=== PATIENT | female | born 1975 | race Caucasian/White ===

== ENCOUNTER 2021-01-11 10:15 | Inpatient (IN) | payer OTHER, BC ==
[~2021-01-11] VITALS: Ht 162.6 cm; Wt 173.7 kg
--- NOTE | ~2021-01-11 | O ---
[facility] [place] [address] OPERATIVE REPORT Name: ABRAN ESPINOZA Room #: 456-P ADM IN M.R.#: [id number] Admission: 01/11/21 Attend Phys: Roberto Lackey MD Discharge: Date of : 75 Report #: [id number] THIS REPORT FOR: cc: Sandee Mukherjee MD, Emily G. MD Joseph, Sigi P. MD ~ DOC #: [id number] cc: Sandee Lackey MD DATE OF SERVICE: 01/11/2021 PREOPERATIVE DIAGNOSES: Morbid obesity, arthritis and history of a lap band placement and removal. POSTOPERATIVE DIAGNOSES: Morbid obesity, arthritis and history of a lap band placement and removal. OPERATIVE PROCEDURES DONE: 1. Laparoscopic lysis of adhesions. 2. Laparoscopic Reynaldo-en-Y gastric bypass. 3. Upper GI endoscopy. OPERATING SURGEON: Roberto Lackey MD INDICATIONS FOR PROCEDURE: The patient is a 45-year-old female who presented with features of morbid obesity. She was noted to have a weight of 176 kilograms with a BMI of 67 with the above listed comorbidities. The patient has a history of lap band placement and subsequent removal. The patient was advised laparoscopic Reynaldo-en-Y gastric bypass. The patient stated understanding and agreed to proceed. PROCEDURE IN DETAIL: After explaining to the patient in detail and informed consent was obtained, the patient was identified in the preoperative holding area. The patient was transferred to the operating room and was placed in supine position. Sequential compression devices were placed for DVT prophylaxis. Preoperative antibiotics were given. After induction of anesthesia, the abdomen was prepped and draped in a sterile fashion. Through a left upper quadrant 1 cm incision and using Optiview technique, peritoneal cavity was entered and pneumoperitoneum was created. Thereafter, under direct vision, another 5 mm trocar was placed in the left mid abdomen and a 12 mm trocar was placed in the right mid abdomen and another 5 mm trocar was placed in the right and through a 1 cm incision in the epigastrium, a Samaria retractor was introduced and the left lobe of the liver was retracted. On initial inspection, the patient was noted to have some adhesions in the upper part of the stomach. These adhesions were taken down using EnSeal, the gastrogastric [address] [address] OPERATIVE REPORT Name: ABRAN ESPINOZA Larisa Room #: 456-P [facility] IN M.R.#: [id number] Admission: 01/11/21 Attend Phys: Roberto Lackey MD Discharge: Date of : 75 Report #: [id number] plication, which was previously placed for the lap band was also removed. Some of the sutures were also removed. I then mobilized the angle of His by dividing all the adhesions in this area. The gastrohepatic omentum was divided. The small blood vessels along the lesser curve and the fatty tissue was divided using Endo-YOLANDA white load stapler with Padma-Strips at the junction of the proximal and middle third of the stomach. I then fired a single 60 mm green load with Padma-Strip in a transverse fashion, I then continued to create the pouch by dividing the stomach in a vertical fashion up to the angle of His. Once this was completed, I then divided the greater omentum in the middle. I then retracted the transverse mesocolon. The small bowel was then identified at the ligament of Treitz and then was measured downstream for about 50 cm and enterotomy was made. At this point, a posterior gastrotomy was made in the gastric pouch and a posterior gastrojejunostomy was made to create a 2.5-3 cm sized anastomosis. The common gastroenterotomy was then closed using 2-0 V-Loc continuous sutures in two layers. I then divided the biliary limb just proximal to the anastomosis using Endo-YOLANDA blue load stapler. I then measured the Reynaldo limb for about 130 cm. An enterotomy was made at this point, another enterotomy was made on the biliary limb and a [id number] jejunojejunostomy was performed. The common enterotomy was then closed using another blue load with Padma-Strips. The mesenteric defect at the jejunojejunostomy was closed using 2-0 silk sutures. The Reynaldo limb was then occluded. An endoscope was then introduced into the esophagus, was gradually advanced into the pouch. The pouch appeared to be of adequate size. I was able to enter the Reynaldo limb without difficulty and air insufflation test and air leak test was performed by insufflation of the stomach and by irrigation of fluid along the staple line. There was no leak that was noted. Absolute hemostasis was ensured. Thorough saline irrigation was given. Approximately 10 mL of lidocaine, Marcaine mix was instilled into the left hemidiaphragm. The Samaria retractor was removed. The 12 mm port site incision was closed with 0 Vicryl for the fascia. Skin was closed with 4-0 Monocryl for the incisions. Dermabond was applied. The patient was stable at the end of the procedure. The patient was awoken from anesthesia and was transferred to the recovery room in stable condition. ESTIMATED BLOOD LOSS: Approximately 25 mL. CONDITION OF THE PATIENT: Stable. FLUIDS GIVEN: Per anesthesia notes. SPECIMEN SENT: None. COMPLICATIONS: None. ANESTHESIA: General anesthesia. [address] [address] OPERATIVE REPORT Name: ABRAN ESPINOZA Larisa Room #: 456-P [facility] IN M.R.#: [id number] Admission: 01/11/21 Attend Phys: Roberto Lackey MD Discharge: Date of : 75 Report #: [id number] Roberto Lackey MD SPJ/KDA By: [id number] Roberto Lackey MD /nt
[~2021-01-11 10:15] MED LIST: COLLAGEN TOP; EUTHYROX200 MCG PO; LEXAPRO20 MG PO; MULTIVITAMIN PATCH TOP; PROAIR HFA8.5 GM INH
[2021-01-11 13:07] VITALS: BP 147/95
[2021-01-11 19:21] VITALS: BP 144/81
[2021-01-12 04:30] VITALS: BP 142/86
--- NOTE | 2021-01-12 05:23 | NUR ---
ASSESSMENT: PT ARRIVED TO THE UNIT AT APPROXIMATELY 1930 FROM SURGERY. REPORT GIVEN TO FELIPE CLEVELAND ON THE UNIT AND PASSED ON TO THIS RN. PT IS ALERT AND ORIENT TIMES FOUR. C/O ABD PAIN 9/10 NUMERIC SCALE. IV PRN PAIN MEDICATION GIVEN WITH PARTIAL RELIEF. SPOUSE AT THE BEDSIDE. VSS, AFEBRILE. SR PER MONITOR. PT DID AMBULATE TO THE END OF THE CORRIDOR TOWARDS THE ELEVATORS FROM ROOM 456. PT TOLERATED THE WALK VERY WELL. PT USED A ROLLER WALKER, O2 @ 6 LITERS AND THE SUPPORT OF THIS RN, Marika MONAE AND THE PT'S . PT C/O MORE PAIN ON THE RIGHT MID ABD QUAD AREA. ALL 5 STAB INCISIONS ARE INTACT WITH THE DERMA-MCGUIRE. SHORTLY AFTER RETURNING TO BED AFTER WALKING, PT C/O DRY HEAVES. ZOFRAN WAS GIVEN WITH PARTIAL RELIEF. PT DENIED UNSUAL LEG PAIN, SOB AND CP. PHILIP LAI WAS NOTIFIED THAT PT HAS MS LISTED AN ALLERGY. ORDERS WERE GIVEN TO GIVE BENEDRYL BEFORE GIVING MS. ANA HOSE AND SCD'S ARE INTACT BILATERALLY. VIDAL WITH ADEQUATE UO. PT ADMITS TO PASSING FLATUS. PT TOLERATED SPARINGLY ICE CHIPS. SLOW PROGRESS TOWARDS DC GOALS,. WILL CONTINUE TO MONITOR.
[2021-01-12 05:32] LABS: ABSOLUTE NEUTROPHILS 7.4 thou/uL (1.4-8.2); BASOPHILS 0.2 % (0.0-2.0); HEMATOCRIT 39.5 % (37.0-47.0); HEMOGLOBIN 13.5 gm/dL (12.0-15.0); LYMPHOCYTES 11.9 % (24.0-44.0); MCH 30.8 pg (26.0-34.0); MCHC 34.1 g/dL (28.0-37.0); MCV 90.2 fL (80.0-100.0); MONOCYTES 5.2 % (1.0-8.0); PLATELET COUNT 265 thou/uL (150-400); POLYS 82.7 % (36.0-66.0); RBC 4.38 mil/uL (4.20-5.00); RDW 13.2 % (10.5-14.5); WBC 8.9 thou/uL (4.0-11.0)
[2021-01-12 05:56] LABS: ALBUMIN 3.3 g/dL (3.4-5.0); CALCIUM 8.4 mg/dL (8.5-10.1); CREATININE 0.7 mg/dL (0.6-1.0); POTASSIUM 4.5 mmol/L (3.5-5.1); TOTAL BILIRUBIN 0.4 mg/dL (0.2-1.0); TOTAL PROTEIN 6.9 g/dL (6.4-8.2)
[2021-01-12 08:00] VITALS: BP 159/80
--- NOTE | 2021-01-12 14:51 | NUR ---
PT ADMITTED RELATED TO LAP GASTRIC BYPASS. CM REVIEWED CHART AND SPOKE WITH CARE TEAM. CM MET WITH PT AND SPOUSE AT BEDSIDE THIS DAY. PT APPEARED TO BE A&O X4. CM ROLE INTRODUCED. PT INDICATED SHE RESIDES IN A DUPLEX WITH HER SPOUSE WITH 6 STEPS TO ENTER AND 14 STEPS INSIDE. 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 PT INDICATED THEY HAVE A CANE, AND WC FOR USE AT HOME IS NEEDED BUT NO FWW. PT HAS CPAP FOR HOME USE. PCP DR. MINDI BANKS. PT WORKED WITH PT AND INDICATED SHE NEEDS A FWW FOR USE UPON DC. CM ORDERED ONE THROUGH [employer] [facility] PT ISSUED IT. IT IS ANTIPATED THAT PT WILL RETURN HOME ONCE MEDICALLY STABLE.
[2021-01-12 15:55] VITALS: BP 145/80
[2021-01-12 19:40] VITALS: BP 159/91
--- NOTE | 2021-01-12 19:49 | NUR ---
ASSUMED PT CARE THIS AM. PT IS ALERT & ORIENTED X4. PT HAS IV SITE ON R HAND. PT HAS SURGERY YESTERDAY. PT HAS 5 LAP SITES WITH DERMABOND CLEAR AND INTACT. PT C/O OF PAIN, NAUSEA AND VOMITING. GIVEN BENARDYL BEFORE MORPHINE PER DR GERALD. GIVEN NAUSEA MEDICATIONS PER PT REQUEST. EDUCATED AND REINFORCE PT AND PT ABOUT WALKING THE HALLWAY. PATIENT WALKED WITH PHYSICAL THERAPY. PT HAS ANA HOSES BILATERAL KNEE HIGH AND SCD WHILE ON BED. PT DID NOT TOLERATED DIET AND FEEL NAUSEATED. PT USES CPAP AT NIGHT. PT VOIDED AFTER REMOVING VIDAL CATH THIS AFTERNOON. ENDORSE NIGHT NURSE TO REINFORCE PT ABOUT THE IMPORTANCE OF WALKING THE HALLWAY. PT ON THE BED WITH SCD ON, BED ON THE LOWEST POSITION, SIDE RAILS UP, CALL LIGHT WITHIN REACH. WILL CONTINUE TO MONITOR PT. FOLLOW POC.
[2021-01-13 05:36] VITALS: BP 132/798
--- NOTE | 2021-01-13 05:56 | NUR ---
Pt. rested quietly at intervals during the night when checked on during frequent rounds. She voices that she had some bloody emesis, but this was not witnessed by this nurse. Explained to pt. if it happens again let this nurse see it. Antinausea meds given (see emar) with some relief noted. Pain meds also given for c/o abdominal pain with some relief noted (see emar). Lapsites with dermabond to abdomen are intact. No further witnessed emesis.
[2021-01-13 07:50] VITALS: BP 125/76
[2021-01-13 14:32] VITALS: BP 125/76
--- NOTE | 2021-01-13 20:06 | NUR ---
Received awake on the chair. Due medications given as prescribed. On telemetry; no complains and signs of chest pain, crushing sensation and heaviness. Assisted in ADLs. Gastric sleeve Stg 1 diet- tolerating well; no nausea, no vomiting and no abdominal pain noted. On telemetry; no complains and signs of chest pain, crushing sensation and heaviness. Continent of bowel and bladder, able to go to the toilet; standby assist and gait belt. Falls bundle in place. With D51/2NS at 125cc/hr, infusing well at R FA. Surgical wound at abdomen C/D/I; 5 lap sites with dermabond. Complained of pain, due PRN pain meds given as prescribed. Pt seen and examined by Dr Lackey; discharge instructions and follow up schedule ordered; to discharge pt once medically stable- pt informed and said she wants to talk to her first. Pt said she is agreeable in being discharged; Dr Lackey called thru answering service to inform re: discharge- Dr Ray called back and said ok to discharge. Discharge instructions, follow up schedule given and instructed; prescription provided. Discharge forms signed. IV discontinued. Telemetry stopped and monitor returned. Pt fetched by her ; brought out of the unit via wheelchair with her personal belongings. Patient discharged.
== END 2021-01-13 16:03 | disposition home or self-care (01) | DRG 621 ==
LOC: PRE 10:15 → TBA 12:14 → PRE 15:02 → 4W 18:51 → PRE 20:34 → 4W 01-13 16:03
PROVIDERS: ADMIT Surgery; ATTEND Surgery
PROC: 0DP64CZ Removal of Extraluminal Device from Stomach, Percutaneous Endoscopic Approach (ICD-10-PCS; principal; 2021-01-11)
PROC: 0DJ08ZZ Inspection of Upper Intestinal Tract, Via Natural or Artificial Opening Endoscopic (ICD-10-PCS; principal; 2021-01-11)
PROC: 0D164ZA Bypass Stomach to Jejunum, Percutaneous Endoscopic Approach (ICD-10-PCS; principal; 2021-01-11)
PROC: 5A09357 Assistance with Respiratory Ventilation, Less than 24 Consecutive Hours, Continuous Positive Airway Pressure (ICD-10-PCS; principal; 2021-01-11)
DX: E66.01 Morbid (severe) obesity due to excess calories (principal); M19.90 Unspecified osteoarthritis, unspecified site; Z68.44 Body mass index [BMI] 60.0-69.9, adult
CPT/HCPCS: 10047; 50010; 50101; 50222; 50386; 50455; 50555; 50558; 50739; 51489; 52265; 52266; 53307; 54022; 54118; 55245; 56462; 56525; 56526; 57092; 58574; 58587; 58870; 58871; 58872; 58873; 62110; 62900; 70005

== ENCOUNTER 2021-01-30 11:29 | Inpatient (IN) | payer OTHER, BC ==
[~2021-01-30] VITALS: Ht 167.6 cm; Wt 163.7 kg
[2021-01-30 12:26] VITALS: BP 159/97
[2021-01-30 12:51] LABS: URINE BILIRUBIN 2+ (Negative); URINE BLOOD NEGATIVE (Negative); URINE CLARITY CLOUDY; URINE GLUCOSE-RANDOM* NEGATIVE (Negative); URINE KETONES TRACE (Negative); URINE LEUKOCYTES-REFLEX NEGATIVE (Negative); URINE NITRITE-REFLEX NEGATIVE (Negative); URINE PROTEIN (DIPSTICK) 1+ (Negative); URINE SPECIFIC GRAVITY >= 1.030 (1.005-1.035); URINE UROBILINOGEN 0.2 E.U./dl (0.2-1.0)
[2021-01-30 12:52] LABS: ICTOTEST (BILI CONFIRMATORY) Positive (Negative); URINE COLOR DARK YELLOW
[2021-01-30 12:59] LABS: CASTS None Seen /LPF (None Seen); CRYSTALS None Seen /LPF (None Seen); SQUAMOUS >10 Many /LPF (0-3); URINE RBC None Seen /HPF (NONE SEEN); URINE WBC-REFLEX 0-5 Rare /HPF (0-5)
[2021-01-30 13:01] LABS: ABSOLUTE NEUTROPHILS 3.5 thou/uL (1.4-8.2); BASOPHILS 0.5 % (0.0-2.0); HEMOGLOBIN 16.1 gm/dL (12.0-15.0); LYMPHOCYTES 42.5 % (24.0-44.0); MCHC 32.9 g/dL (28.0-37.0); MCV 91.1 fL (80.0-100.0); MONOCYTES 7.8 % (1.0-8.0); PLATELET COUNT 298 thou/uL (150-400); POLYS 45.2 % (36.0-66.0); RBC 5.38 mil/uL (4.20-5.00); WBC 7.8 thou/uL (4.0-11.0)
[2021-01-30 13:07] LABS: CALCIUM 9.3 mg/dL (8.5-10.1); POTASSIUM 3.5 mmol/L (3.5-5.1)
[2021-01-30 13:14] LABS: ALBUMIN 3.9 g/dL (3.4-5.0); TOTAL BILIRUBIN 0.9 mg/dL (0.2-1.0); TOTAL PROTEIN 7.4 g/dL (6.4-8.2)
[2021-01-30 13:52] LABS: MAGNESIUM 1.9 mg/dL (1.8-2.4); PHOSPHORUS 2.2 mg/dL (2.6-4.7)
[2021-01-30] MEDS ORDERED: TRANSDERM-SCOP1 EACH TOP (14:37)
[2021-01-30] MEDS ORDERED: HYDROCODON-ACE118 ML PO (14:37)
--- NOTE | 2021-01-30 14:42 | EKG ---
[place] [address] [facility] [employer] [place] [address] ELECTROCARDIOGRAM REPORT Name: ABRAN ESPINOZA Room #: 170-16 ADM IN M.R.#: [id number] Admission: 01/30/21 Attend Phys: Roberto Lackey MD Discharge: Date of : 75 Report #: [id number] [facility] ED Test Date: 2021-01-30 Test Time: 13:05:54 Pat Name: ABRAN ESPINOZA Department: Room: 170 Gender: F Proposal Manager Writer: florencia : 1975 Requested By: Michael Russell Order Number: [id number] MD: Jono Araya Measurements Intervals [place] Rate: 84 P: 38 UT: 168 QRS: -40 QRSD: 94 T: -22 QT: 376 QTc: 445 Interpretive Statements Sinus rhythm Low voltage, precordial leads Borderline T abnormalities, inferior leads Compared to ECG 01/10/2021 14:16:46 T-wave abnormality still present Electronically Signed On 01-30-2021 14:42:08 CDT by Jono Araya [email or web address] <ELECTRONICALLY SIGNED> By: Jono Araya MD, [facility] 01/30/21 1442 1305 1305 Jono Araya MD, FAC /EPI
[2021-01-30 15:07] VITALS: BP 107/59
[2021-01-30 15:35] VITALS: BP 122/77
[2021-01-30 16:43] VITALS: BP 130/61
[2021-01-30 18:55] VITALS: BP 121/68
--- NOTE | 2021-01-30 19:37 | NUR ---
PT ADMITTED DROM ER FOR ABD PAIN , PT HAS HAD GASTRIC BYPASS 3 WEEKS AGO, PT IS A7OX4, PT'S VS ARE STABLE, RN HAS CALLED DR , NEW ORDER RECEIVED.RN HAS REPROTED TO NEXT SHIFT.
[2021-01-31 04:59] VITALS: BP 131/80
[2021-01-31 08:24] VITALS: BP 139/102
--- NOTE | 2021-01-31 11:41 | NUR ---
ASSESSMENT: c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
--- NOTE | 2021-01-31 15:58 | NUR ---
PT IS A&O*4, ROOM AIR, NO PAIN AND NO SKIN ISSUE. REPORT NAUSEA NOT RELIEFED BY IV ZOFRAN AND DESCRIB "BURNING FEELING IN STOMACH", ASK FOR ANTI-ACID MEDICATION. REPORT TO IN PERSON AND ORDERED SUCRAFATE SUSPENSION AND NALANTA. PT REPORT PARTIAL NAUSE AND BURNING STOMACH RELIEFED WITH THE TWO MEDICATION. SCHEDULE EGD FOR PT ON 02/01 AND WILL START NPO AFTER MIDNIGHT TONIGHT. PT GET UP BY LIP AND SIT UP TO CHAIR HALF OF TIME THIS SHIFT. WILL KEEP MONITOR PATIENT'S NAUSEA AND SAFETY.
[2021-01-31 16:20] VITALS: BP 129/82
[2021-01-31 21:07] VITALS: BP 139/89
--- NOTE | 2021-02-01 01:36 | NUR ---
ASSESSED AT START OF SHIFT. PT RESTING IN CHAIR. C/O NAUSEA IV ZOFRAN GIVEN. IV INTACT AND FLUIDS INFUSING. PT NPO AT MIDNIGHT. UP ADLIB IN THE ROOM. CALL LIGHT AT REACH. WILL CONT TO MONITOR TILL EOS.
[2021-02-01 03:46] VITALS: BP 136/85
[2021-02-01 08:53] VITALS: BP 124/70
[2021-02-01 09:40] VITALS: BP 132/83
--- NOTE | 2021-02-01 10:09 | NUR ---
RD consulted r/t poor intake. Pt noted with recent gastric bypass 01/11/21. She is now reporting N/V with fluids, but tolerating small amounts of foods. Appears to have already lost ~20# since procedure. IVFs in place for possible dehydration. Abd/pelvis CT 01/30, Upper GI 01/31 with no findings. Scheduled for EGD this date, is currently NPO. Place at low nutrition risk at this time with follow up planned for 02/05/21 pending results of testing.
--- NOTE | 2021-02-01 13:22 | NUR ---
PATIENT ALERT AND ORINTED X4, ON ROOM AIR, HAD EGD DONE TODAY TOLERATED WELL, UP AD KAELA, NAUSEA MEDICATION GIVEN PER MAR, VITAL SIGNS STABLE, AND AFBRIELE. CALL LIGHT WITH IN REACH, WILL CONTINUE TO MONITOR.
[2021-02-01 20:15] VITALS: BP 166/85
--- NOTE | 2021-02-02 02:25 | NUR ---
ASSESSED AT START OF SHIFT. PT RESTING IN CHAIR, A&OX4. DENIES PAIN. C/O NAUSEA, ZOFRAN GIVEN. IV INTACT AND FLUIDS INFUSING. PT UPADLIB IN THE ROOM. SCOPOLOMINE PATCH ON LEFT EAR. CALL LIGHT AT REACH AND WILL CONT TO MONITOR.
[2021-02-02 04:45] VITALS: BP 127/82
[2021-02-02 07:10] VITALS: BP 132/78
[2021-02-02] MEDS ORDERED: MAG-AL PLUS SUS30 ML PO (09:07)
[2021-02-02] MEDS ORDERED: CARAFATE1 GM PO (09:08)
[2021-02-02] MEDS ORDERED: PRILOSEC OTC20 MG PO (09:09)
[2021-02-02] MEDS ORDERED: ONDANSETRON HCL4 M2 PO (09:10)
--- NOTE | 2021-02-02 10:18 | NUR ---
RN WENT OVER ALL DISCHARGE TEACH AND ALL QUESTIONS ANSWERED, IV OUT, WHEELED OUT IN WHEELCHAIR TO HOME
--- NOTE | 2021-02-02 16:01 | NUR ---
on-giong assessment: pt had orders to discharge home today no needs. case closed.
== END 2021-02-02 11:16 | disposition home or self-care (01) | DRG 395 ==
LOC: ER 11:29 → EROBS 14:23 → 4S 14:23
PROVIDERS: Student in an Organized Health Care Education/Training Program; ADMIT Surgery; ATTEND Surgery
DX: K91.89 Other postprocedural complications and disorders of digestive system (principal); Z20.822 Contact with and (suspected) exposure to COVID-19; F32.9 Major depressive disorder, single episode, unspecified; F41.9 Anxiety disorder, unspecified; J45.909 Unspecified asthma, uncomplicated; E03.9 Hypothyroidism, unspecified; Z90.710 Acquired absence of both cervix and uterus; Z90.49 Acquired absence of other specified parts of digestive tract; Z88.8 Allergy status to other drugs, medicaments and biological substances; Z88.6 Allergy status to analgesic agent; Z91.040 Latex allergy status
CPT/HCPCS: 10195; 70005